=== PATIENT | female | born 1945 | race Hispanic/Latino ===

== ENCOUNTER 2016-12-31 07:09 | Day surgery (SDC) | payer MEDICARE, OTHER ==
[2016-12-24 08:21] VITALS: BMI 23.1
[2016-12-31] MEDS ORDERED: Lactated Ringer's 1,000 ML IV ONE ×2 (07:26)
[2016-12-31] MEDS ORDERED: Propofol 10 mg/ml Inj (20 ML) ONE (07:47)
[2016-12-31] MEDS ORDERED: Midazolam 2 MG/2 ML VIAL ONE (07:47)
[2016-12-31] MEDS ORDERED: Lidocaine Hydrochloride 5 ML INJ ONE (07:59)
[2016-12-31] MEDS ORDERED: Phenylephrine 10 mg/ml Inj ONE (08:39)
--- NOTE | 2016-12-31 09:08 | PCM.SURG1 ---
Surgeon's Initial Post Op Note - Surgeon's Notes Surgeon: Willow López MD Moth Proofer: None Type of Anesthesia: General LMA Pre-Operative Diagnosis: Post menopausal bleeding, thickened endometrium on ultrasound Operative Findings: 8 week size uterus, anterverted, no adnexal masses, stenotic cervical os dilated, bilateral ostia visuzlized, submucosal myoma protruding into cavity from anterior uterine wall occluding 80% of uterine cavity, good hemostasis, no complicatins, succesfful resection via myosure device Post-Operative Diagnosis: Submucosal myoma, same as above Operation Performed: Hysteroscopic myomectomy, fractional dilation and currettage Specimen/Specimens Removed: endocervical currettage, endometrial currettage, submucosal myoma Estimated Blood Loss: EBL {In ML}: 5 Blood Products Given: N/A Drains Used: No Drains Post-Op Condition: Good Date of Surgery/Procedure: 12/31/16 Time of Surgery/Procedure: 08:30
[2016-12-31] MEDS ORDERED: HYDROmorphone 0.5 mg/0.5 ml ISec IVP PRN (09:10)
[2016-12-31 09:25] VITALS: O2SAT 99
--- NOTE | 2016-12-31 11:51 | OP ---
PROCEDURE DATE: 12/31/2016 SURGEON: Dr. Willow López. SUBSTATION OPERATOR TRANSFORMING: None. TYPE OF ANESTHESIA: General LMA. PREOPERATIVE DIAGNOSIS: Submucosal leiomyoma. OPERATIVE FINDINGS: 8 week size uterus, anteverted, no adnexal masses, stenotic cervical os dilated bilateral ostia visualized, submucosal myoma protruding into the cavity from the anterior uterine wal l including 80% of the cavity approximately 3 cm. Good hemostasis. No complications. Successful re section via MyoSure device. POSTOPERATIVE DIAGNOSIS: 1. Submucosal leiomyoma. 2. Postmenopausal bleeding, thickened endometrium on ultrasound. OPERATION PERFORMED: Hysteroscopic myomectomy, fractional dilation and curettage. SPECIMEN: Endocervical curettage, endometrial curettings, submucosal myoma. ESTIMATED BLOOD LOSS: 5 mL BLOOD PRODUCTS: None. COMPLICATIONS: None. DESCRIPTION OF PROCEDURE: The patient taken to the operating room where she was given general anesth esia. Once this was found to be adequate, she was positioned on the operating table in dorsal supine position with legs supported using stirrups. The patient was then prepped and draped in the usual n ormal sterile fashion. Timeout was confirmed, correct patient, and correct procedure. A bimanual ex am was performed with above-mentioned findings. A Wick retractor was placed in the anterior, posteri or fornix of the vagina and the cervix was adequately visualized, which appeared to be atrophic and s tenotic. A single tooth tenaculum was placed in the anterior lip of the cervix and the cervix was se quentially dilated with the cervical dilator. After endocervical curettage was obtained with a Kaye pimentel curet and sent to pathology on [facility]. Following this, the uterus was then sounded to 7 cm and t he cervix was sequentially dilated to allow for introduction of the hysteroscope under direct visuali zation using normal saline as the distention media. Upon visualization, there was a mass protruding, appearing to be a leiomyoma from the anterior uterine wall and right lateral wall protruding approxi mately 80% in the cavity. Posterior to this, the right ostium was visualized. The left ostium was v isualized clearly. Following this, a MyoSure device was then inserted under direct visualization and the mass was carefully resected in its entirety and the MyoSure removal device was then removed. Th ere was good removal of the of the mass and there was good hemostasis noted. Following this, the hys teroscope was then removed and a gentle curettage was done 360 degrees until a gritty texture was not ed. The specimen was sent to pathology on [facility]. There was good hemostasis noted. The single tooth tenaculum was removed and there was good hemostasis at the tenaculum puncture sites. All wounds wer e removed. At the end of the procedure, all needle, sponge and instrument counts were noted to be co rrect x 2. The patient tolerated the procedure well and was transferred to the recovery room in stab le condition. Willow López MD cc: [id number] TT: 12/31/2016 11:50:50 jn
[2016-12-31 12:23] VITALS: BP 100/56; PULSE 78; RESP 15; TEMP 97.5
== END 2016-12-31 12:00 | disposition home or self-care (01) ==
LOC: C.SDS 07:09
PROVIDERS: ATTEND Obstetrics & Gynecology
DX: D25.0 Submucous leiomyoma of uterus (principal); N95.0 Postmenopausal bleeding
CPT/HCPCS: 57505; 58561; 88305; J2250; J2370; J2704; J3010; J7120